=== PATIENT | male | born 1990 | race Two or more races ===

== ENCOUNTER 2024-01-15 11:02 | Emergency (ER) | payer OTHER ==
[~2024-01-15] VITALS: Ht 177.8 cm; Wt 65.9 kg
[2024-01-15 11:10] VITALS: TEMP 98.2
[2024-01-15 13:10] VITALS: BP 128/80; PULSE 72; RESP 16
[2024-01-15] MEDS ORDERED: IBUP-1492 PO (14:17)
== END 2024-01-15 14:33 | disposition home or self-care (01) ==
LOC: EMS 11:02
DX: S13.4XXA Sprain of ligaments of cervical spine, initial encounter (principal); Y08.89XA Assault by other specified means, initial encounter; Y93.89 Activity, other specified; Y92.89 Other specified places as the place of occurrence of the external cause; Y99.8 Other external cause status
CPT/HCPCS: 72125; 99284; Z7502